=== PATIENT | male | born 1990 | race Caucasian/White ===

== ENCOUNTER 2019-06-26 12:16 | Observation (INO) | payer MEDICARE ==
[2019-06-26] MEDS ORDERED: Ondansetron 4 MG/2 ML SDV IVPUSH ONE (12:42)
[2019-06-26] MEDS ORDERED: Sodium Chloride 0.9% 1,000 ML IV ONE (12:42)
[2019-06-26] MEDS ORDERED: Pantoprazole 80 MG in Sodium Chloride 0.9% 20 ML IVPUSH ONE (12:42)
--- NOTE | 2019-06-26 12:46 | EDM.PDOC ---
ED HPI GENERAL MEDICAL PROBLEM - General Chief Complaint: Gastrointestinal Problem Stated Complaint: VOMITTING BLOOD Time Seen by Provider: 06/26/19 12:27 Source of Information: Reports: Patient History Limitations: Reports: No Limitations - History of Present Illness INITIAL COMMENTS - FREE TEXT/NARRATIVE: HISTORY AND PHYSICAL: History of present illness: Patient is a 29-year-old male who presents to the ED today with concern of blood in his vomit that occurred approximately 2 hours prior to arrival to the ED. Patient states he had just eaten and started feeling nauseous and vomited. Patient states after the food at all past there was a small amount of blood in his vomit. Patient states he had one more episode of vomiting just before coming to the ED which has also had a small amount of blood. Patient states he does drink alcohol and used to drink about 10 beers a day but over the past month has been having "stomach issues "socially been drinking 2-3 drinks a day. Patient states he does have a history of GERD but she is not taking any medications for. Patient states he has some upper abdominal pain which she feels is associated vomiting. Patient denies any other symptoms or concerns. Patient denies fever, chills, chest pain, shortness of breath, or cough. Denies headache, neck stiff ness, change in vision, syncope, or near syncope. Denies diarrhea, constipation, or dysuria. Has not noted any blood in urine or stool. Patient has been eating and drinking appropriately. Review of systems: As per history of present illness and below otherwise all systems reviewed and negative. Past medical history: As per history of present illness and as reviewed below otherwise noncontributory. Surgical history: As per history of present illness and as reviewed below otherwise noncontributory. Social history: See social history for further information Family history: As per history of present illness and as reviewed below otherwise noncontributory. Physical exam: General: Patient is alert, oriented, and in no acute distress. Patient sitting comfortably on exam table. HEENT: Atraumatic, normocephalic, pupils equal and reactive bilaterally, negative for conjunctival pallor or scleral icterus, mucous membranes moist, TMs normal bilaterally, throat clear, neck supple, nontender, trachea midline. No drooling or trismus noted. No meningeal signs. No hot potato voice noted. Lungs: Clear to auscultation, breath sounds equal bilaterally, chest nontender. Heart: S1S2, regular rate and rhythm without overt murmur Abdomen: Soft, nondistended, nontender. Negative for masses or hepatosplenomegaly. Negative for costovertebral tenderness. Pelvis: Stable nontender. Genitourinary: Deferred. Rectal: Hemoccult negative Skin: Intact, warm, dry. No lesions or rashes noted. Extremities: Atraumatic, negative for cords or calf pain. Neurovascular unremarkable. Neuro: Awake, alert, oriented. Cranial nerves II through XII unremarkable. Cerebellum unremarkable. Motor and sensory unremarkable throughout. Exam nonfocal. Notes: Dr. Moon consulted on patient and will admit to observation. Voices understanding and is agreeable to plan of care. Denies any further questions or concerns at this time. Diagnostics: CBC, CMP, UA, EKG, lipase, Hemoccult, abdominal pelvic CT Therapeutics: Saline, Zofran, Protonix Impression: H/O hematemesis Transaminitis Plan: Admit to observation to Dr. Moon Definitive disposition and diagnosis as appropriate pending reevaluation and review of above. - Related Data Allergies Allergy/AdvReac Type Severity Reaction Status Date / Time divalproex sodium Allergy Irritabilit Verified 06/26/19 12:28 [From Depakote] y risperidone [From Risperdal] Allergy Irritabilit Verified 06/26/19 12:28 y Home Meds: Home Meds Lisinopril 40 mg PO ASDIRECTED 06/26/19 [History] OLANZapine [Olanzapine Odt] 10 mg PO ASDIRECTED 06/26/19 [History] Past Medical History Cardiovascular History: Reports: Hypertension Musculoskeletal History: Reports: Fracture Other Musculoskeletal History: Left hip Psychiatric History: Reports: Bipolar - Infectious Disease History Infectious Disease History: Reports: Chicken Pox Social & Family History - Family History Family Medical History: Noncontributory - Caffeine Use Caffeine Use: Reports: Coffee - Recreational Drug Use Recreational Drug Use: No ED ROS GENERAL - Review of Systems Review Of Systems: Comprehensive ROS is negative, except as noted in HPI. ED EXAM, GENERAL - Physical Exam Exam: See Below (see dictation) Course - Vital Signs Last Recorded V/S: Last Vital Signs Temp 97 F 06/26/19 12:29 Pulse 100 06/26/19 14:46 Resp 18 06/26/19 14:46 BP 145/95 H 06/26/19 14:46 Pulse Ox 98 06/26/19 14:46 - Orders/Labs/Meds Orders: Active Orders 24 hr Category Date Time Status Admission Status [Patient Status] [ADT] Stat ADT 06/26/19 15:19 Ordered EKG Documentation Completion [RC] STAT Care 06/26/19 12:46 Active Hemoccult [Fecal Occult Blood Collection] [RC] Care 06/26/19 12:42 Active ASDIRECTED Labs: Laboratory Tests 06/26/19 06/26/19 06/26/19 Range/Units 12:50 13:00 13:00 WBC 10.52 (4.0-11.0) K/uL RBC 5.08 (4.50-5.90) M/uL Hgb 16.2 (13.0-17.0) g/dL Hct 45.3 (38.0-50.0) % MCV 89.2 (80.0-98.0) fL MCH 31.9 (27.0-32.0) pg MCHC 35.8 (31.0-37.0) g/dL RDW Std Deviation 38.7 (28.0-62.0) fl RDW Coeff of Jazlyn 12 (11.0-15.0) % Plt Count 288 (150-400) K/uL MPV 9.80 (7.40-12.00) fL Neut % (Auto) 62.9 (48.0-80.0) % Lymph % (Auto) 24.6 (16.0-40.0) % [place] % (Auto) 7.4 (0.0-15.0) % Eos % (Auto) 3.5 (0.0-7.0) % Baso % (Auto) 1.6 H (0.0-1.5) % Neut # (Auto) 6.6 H (1.4-5.7) K/uL Lymph # (Auto) 2.6 H (0.6-2.4) K/uL [place] # (Auto) 0.8 (0.0-0.8) K/uL Eos # (Auto) 0.4 (0.0-0.7) K/uL Baso # (Auto) 0.2 H (0.0-0.1) K/uL Nucleated RBC % 0.0 /100WBC Nucleated RBCs # 0 K/uL Sodium 136 (136-148) mmol/L Potassium 4.6 (3.5-5.1) mmol/L Chloride 100 (98-107) mmol/L Carbon Dioxide 24.1 (21.0-32.0) mmol/L BUN 9 (7.0-18.0) mg/dL Creatinine 1.1 (0.8-1.3) mg/dL Est Cr Clr Drug Dosing 109.74 mL/min Estimated GFR (MDRD) > 60.0 ml/min Glucose 102 (74-106) mg/dL Calcium 9.6 (8.5-10.1) mg/dL Total Bilirubin 0.4 (0.2-1.0) mg/dL AST 73 H (15-37) IU/L ALT 238 H (14-63) IU/L Alkaline Phosphatase 118 H (46-116) U/L Total Protein 8.3 H (6.4-8.2) g/dL Albumin 4.5 (3.4-5.0) g/dL Globulin 3.8 (2.6-4.0) g/dL Albumin/Globulin Ratio 1.2 (0.9-1.6) Lipase 99 (73-393) U/L Urine Color YELLOW Urine Appearance CLEAR Urine pH 6.0 (5.0-8.0) Ur Specific [place] 1.020 (1.001-1.035) Urine Protein NEGATIVE (NEGATIVE) mg/dL Urine Glucose (UA) NEGATIVE (NEGATIVE) mg/dL Urine Ketones NEGATIVE (NEGATIVE) mg/dL Urine Occult Blood NEGATIVE (NEGATIVE) Urine Nitrite NEGATIVE (NEGATIVE) Urine Bilirubin NEGATIVE (NEGATIVE) Urine Urobilinogen 0.2 (<2.0) EU/dL Ur Leukocyte Esterase NEGATIVE (NEGATIVE) Meds: Medications Discontinued Medications Generic Name Dose Route Start Last Admin Trade Name Freq PRN Reason Stop Dose Admin Sodium Chloride 1,000 mls @ 999 mls/hr 06/26/19 12:42 06/26/19 13:03 Normal Saline IV 06/26/19 13:42 999 mls/hr BOLUS ONE Administration Pantoprazole Sodium 80 mg/ 20 mls @ 420 mls/hr 06/26/19 12:42 06/26/19 13:05 Sodium Chloride IVPUSH 06/26/19 12:44 420 mls/hr ONETIME ONE Administration Iopamidol 100 ml 06/26/19 14:19 06/26/19 14:20 Isovue-370 (76%) IVPUSH 06/26/19 14:20 100 ml ONETIME STA Administration Ondansetron HCl 4 mg 06/26/19 12:42 06/26/19 13:04 Zofran IVPUSH 06/26/19 12:43 4 mg ONETIME ONE Administration Departure - Departure Time of Disposition: 15:20 Disposition: Refer to Observation Clinical Impression: History of hematemesis, Transaminitis - Discharge Information Referrals: PCP,None [Primary Care Provider] - Forms: ED Department Discharge Sepsis Event Note - Evaluation Sepsis Screening Result: No Definite Risk - Focused Exam Vital Signs: Vital Signs Temp Pulse Resp BP Pulse Ox 06/26/19 14:46 100 18 145/95 H 98 06/26/19 12:29 97 F 120 H 20 151/93 H 97 Date Exam was Performed: 06/26/19 Time Exam was Performed: 15:20 - My Orders Last 24 Hours: My Active Orders 06/26/19 12:42 Hemoccult [Fecal Occult Blood Collection] [RC] ASDIRECTED 06/26/19 12:46 EKG Documentation Completion [RC] STAT 06/26/19 15:19 Admission Status [Patient Status] [ADT] Stat - Assessment/Plan Last 24 Hours: My Active Orders 06/26/19 12:42 Hemoccult [Fecal Occult Blood Collection] [RC] ASDIRECTED 06/26/19 12:46 EKG Documentation Completion [RC] STAT 06/26/19 15:19 Admission Status [Patient Status] [ADT] Stat
[2019-06-26 13:38] LABS: BLOOD UREA NITROGEN,BUN 9 mg/dL (7.0-18.0); CARBON DIOXIDE,CO2 24.1 mmol/L (21.0-32.0); CHLORIDE,CL 100 mmol/L (98-107); GLUCOSE RANDOM 102 mg/dL (74-106); LIPASE 99 U/L (73-393); POTASSIUM,K 4.6 mmol/L (3.5-5.1); SODIUM,NA 136 mmol/L (136-148)
[2019-06-26] MEDS ORDERED: Iopamidol 755 Mg/ML 100 ML Bottle IVPUSH STA (14:19)
--- NOTE | 2019-06-26 14:37 | CT ---
Vomiting blood this a.m. Technique: Contrast-enhanced CT and pelvis 100 mL Isovue-370 coronal and sagittal re-formatted images obtained. Findings : Heart is normal. No pericardial effusion. No pleural effusion. 3 mm right middle lobe pulmonary nodule series 201 image 6. Fatty liver. Spleen pancreas adrenal glands are unremarkable. Gallbladder is unremarkable. Normal caliber abdominal aorta. Stomach decompressed and grossly unremarkable. Kidneys are unremarkable.Bowel is unremarkable. No findings for appendicitis. Fat containing inguinal hernias. Urinary bladder is unremarkable prostate gland is unremarkable. No inflammatory change in the abdomen or pelvis. Postsurgical changes left pelvis. No suspicious bony lesions. Impression : 1. No acute findings in the abdomen or pelvis. 2. Fatty liver. 3. 3 millimeter right middle lobe pulmonary nodule follow-up per Fleischner society guidelines. Please note that all CT scans at this facility use dose modulation, iterative reconstruction, and/or weight-based dosing when appropriate to reduce radiation dose to as low as reasonably achievable. Dictated by Alicia Rebolledo MD @ Jun 26 2019 2:25PM Signed by Dr. Alicia Rebolledo @ Jun 26 2019 2:35PM
[2019-06-26] MEDS ORDERED: Lactated Ringers 1,000 ML IV ONE (15:19)
[2019-06-26] MEDS ORDERED: Ondansetron 4 MG/2 ML SDV IVPUSH PRN (15:21)
[2019-06-26] MEDS ORDERED: LORazepam 1 MG Tab PO PRN (15:27)
[2019-06-26] MEDS ORDERED: Lactated Ringers 1,000 ML IV SCH (15:30)
--- NOTE | 2019-06-26 15:37 | PCM.HP.2 ---
<Demian Pisano M - Last Filed: 06/26/19 15:32> H&P History of Present Illness - General Date of Service: 06/26/19 Admit Problem/Dx: Admission Diagnosis/Problem Admission Diagnosis/Problem History of hematemesis Source of Information: Patient History Limitations: Reports: No Limitations - History of Present Illness Initial Comments - Free Text/Narative: 29-year-old male presented to ER after 2 episodes blood in his vomit this morning. He has a PMH of HTN, bipolar disease and GERD. He reports that he vomited after eating his breakfast this morning and estimates it was about 100 cc. He reports he vomiting a second time just prior to coming to the ER which was just a scant amount of blood. He reported feeling a little dizzy after vomiting. Denies history of any blood in his vomit prior to this episode. No history of cirrhosis. He denied any fevers, chills, blurry vision, shortness of breath, sore throat, cough, chest pain, nausea, abdominal pain, diarrhea, blood in stool, blood in urine, numbness or tingling in extremities. He does have a history of alcohol abuse and a few months ago was drinking up to 10 beers per day for about 6 months. Recently, he reports only drinking approximately 2 beers per day. Smokes e-cigarettes and denied illicit drug use. In the ER, patient's HR was 120 and BP was 151/93 mm Hg. Hemoglobin was 16. CMP revealed transaminitis. CT abdomen/pelvis showed fatty liver disease and no acute findings. Hemoccult stool test negative. UA negative. EKG showed sinus tachycardia. He received 1 L IV NS bolus, IV pantoprazole 80 mg and admitted for further evaluation. - Related Data Allergies/Adverse Reactions: Allergies Allergy/AdvReac Type Severity Reaction Status Date / Time divalproex sodium Allergy Irritabilit Verified 06/26/19 16:11 [From Depakote] y risperidone [From Risperdal] Allergy Irritabilit Verified 06/26/19 16:11 y Home Medications: Home Meds Lisinopril 40 mg PO DAILY 06/26/19 [History] OLANZapine [Olanzapine Odt] 10 mg PO DAILY 06/26/19 [History] Past Medical History Cardiovascular History: Reports: Hypertension Musculoskeletal History: Reports: Fracture Other Musculoskeletal History: Left hip Psychiatric History: Reports: Bipolar - Infectious Disease History Infectious Disease History: Reports: Chicken Pox Social & Family History - Family History Family Medical History: Noncontributory - Caffeine Use Caffeine Use: Reports: Coffee - Recreational Drug Use Recreational Drug Use: No H&P Review of Systems - Review of Systems: Review Of Systems: Comprehensive ROS is negative, except as noted in HPI. Exam - Exam Exam: See Below - Vital Signs Vital Signs: Last Vital Signs Temp 97 F 06/26/19 12:29 Pulse 100 06/26/19 14:46 Resp 18 06/26/19 14:46 BP 145/95 H 06/26/19 14:46 Pulse Ox 98 06/26/19 14:46 Weight: 104.326 kg - Exam General: Alert, Oriented, Cooperative, Other (NAD) HEENT: Conjunctiva Clear, EOMI, Hearing Intact, Mucosa Moist & [place], Posterior Pharynx Clear Neck: Supple, Trachea Midline Lungs: Clear to Auscultation, Normal Respiratory Effort Cardiovascular: Regular Rate, Regular Rhythm GI/Abdominal Exam: Normal Bowel Sounds, Soft, Non-Tender, No Distention Extremities: Normal Inspection, No Pedal Edema Peripheral Pulses: 1+: Radial (L), Radial (R) Skin: Warm, Dry, Intact Neurological: Cranial Nerves Intact, Strength Equal Bilateral, Normal Speech, Normal Tone Neuro Extensive - Mental Status: Alert, Oriented x3, Normal Mood/Affect - Patient Data Lab Results Last 24 hrs: Laboratory Results - last 24 hr 06/26/19 06/26/19 06/26/19 Range/Units 12:50 13:00 13:00 WBC 10.52 (4.0-11.0) K/uL RBC 5.08 (4.50-5.90) M/uL Hgb 16.2 (13.0-17.0) g/dL Hct 45.3 (38.0-50.0) % MCV 89.2 (80.0-98.0) fL MCH 31.9 (27.0-32.0) pg MCHC 35.8 (31.0-37.0) g/dL RDW Std Deviation 38.7 (28.0-62.0) fl RDW Coeff of Jazlyn 12 (11.0-15.0) % Plt Count 288 (150-400) K/uL MPV 9.80 (7.40-12.00) fL Neut % (Auto) 62.9 (48.0-80.0) % Lymph % (Auto) 24.6 (16.0-40.0) % Long % (Auto) 7.4 (0.0-15.0) % Eos % (Auto) 3.5 (0.0-7.0) % Baso % (Auto) 1.6 H (0.0-1.5) % Neut # (Auto) 6.6 H (1.4-5.7) K/uL Lymph # (Auto) 2.6 H (0.6-2.4) K/uL Long # (Auto) 0.8 (0.0-0.8) K/uL Eos # (Auto) 0.4 (0.0-0.7) K/uL Baso # (Auto) 0.2 H (0.0-0.1) K/uL Nucleated RBC % 0.0 /100WBC Nucleated RBCs # 0 K/uL Sodium 136 (136-148) mmol/L Potassium 4.6 (3.5-5.1) mmol/L Chloride 100 (98-107) mmol/L Carbon Dioxide 24.1 (21.0-32.0) mmol/L BUN 9 (7.0-18.0) mg/dL Creatinine 1.1 (0.8-1.3) mg/dL Est Cr Clr Drug Dosing 109.74 mL/min Estimated GFR (MDRD) > 60.0 ml/min Glucose 102 (74-106) mg/dL Calcium 9.6 (8.5-10.1) mg/dL Total Bilirubin 0.4 (0.2-1.0) mg/dL AST 73 H (15-37) IU/L ALT 238 H (14-63) IU/L Alkaline Phosphatase 118 H (46-116) U/L Total Protein 8.3 H (6.4-8.2) g/dL Albumin 4.5 (3.4-5.0) g/dL Globulin 3.8 (2.6-4.0) g/dL Albumin/Globulin Ratio 1.2 (0.9-1.6) Lipase 99 (73-393) U/L Urine Color YELLOW Urine Appearance CLEAR Urine pH 6.0 (5.0-8.0) Ur Specific [place] 1.020 (1.001-1.035) Urine Protein NEGATIVE (NEGATIVE) mg/dL Urine Glucose (UA) NEGATIVE (NEGATIVE) mg/dL Urine Ketones NEGATIVE (NEGATIVE) mg/dL Urine Occult Blood NEGATIVE (NEGATIVE) Urine Nitrite NEGATIVE (NEGATIVE) Urine Bilirubin NEGATIVE (NEGATIVE) Urine Urobilinogen 0.2 (<2.0) EU/dL Ur Leukocyte Esterase NEGATIVE (NEGATIVE) Result Diagrams: 06/26/19 13:00 06/26/19 13:00 Sepsis Event Note - Evaluation Sepsis Screening Result: No Definite Risk - Focused Exam Vital Signs: Vital Signs Temp Pulse Resp BP Pulse Ox 06/26/19 14:46 100 18 145/95 H 98 06/26/19 12:29 97 F 120 H 20 151/93 H 97 Date Exam was Performed: 06/26/19 Time Exam was Performed: 15:32 Problem List Initiated/Reviewed/Updated: Yes Orders Last 24hrs: Active Orders 24 hr Category Date Time Status Admission Status [Patient Status] [ADT] Stat ADT 06/26/19 15:19 Active Antiembolic Devices [RC] PER UNIT ROUTINE Care 06/26/19 15:22 Ordered CIWAA Assessment [RC] Q4H Care 06/26/19 15:26 Ordered EKG Documentation Completion [RC] STAT Care 06/26/19 12:46 Active Hemoccult [Fecal Occult Blood Collection] [RC] Care 06/26/19 12:42 Active ASDIRECTED Notify Provider Consults [RC] ASDIRECTED Care 06/26/19 15:31 Ordered Oxygen Therapy [RC] PRN Care 06/26/19 15:21 Ordered Up ad Beckie [RC] ASDIRECTED Care 06/26/19 15:21 Ordered VTE/DVT Education [RC] PER UNIT ROUTINE Care 06/26/19 15:21 Ordered Vital Signs [RC] Q4H Care 06/26/19 15:21 Ordered Consult to Physician [CONS] Stat Cons 06/26/19 15:31 Ordered Nothing per Oral Now Diet [DIET] Diet 06/26/19 Lunch Ordered CBC WITH AUTO DIFF [HEME] AM Lab 06/27/19 05:11 Ordered COMPREHENSIVE METABOLIC PN,CMP [CHEM] AM Lab 06/27/19 05:11 Ordered HEMOGLOBIN [HEME] Timed Lab 06/26/19 19:00 Ordered LORazepam [Ativan] Med 06/26/19 15:27 Ordered See Protocol PO Q4H PRN Lactated Ringers [Ringers, Lactated] 1,000 ml Med 06/26/19 15:19 Active IV .BOLUS Lactated Ringers [Ringers, Lactated] 1,000 ml Med 06/26/19 15:30 Active IV ASDIRECTED Ondansetron [Zofran] Med 06/26/19 15:21 Ordered 4 mg IVPUSH Q4H PRN Pantoprazole [ProTONIX IV] 40 mg Med 06/27/19 09:00 Ordered Sodium Chloride 0.9% [Normal Saline] 10 ml IV BID Sucralfate [Carafate] Med 06/26/19 15:30 Ordered 1 gm PO Q6H Sequential Compression Device [OM.PC] Per Unit Routine Oth 06/26/19 15:21 Ordered Resuscitation Status Routine Resus Stat 06/26/19 15:21 Ordered Medication Orders Lactated Ringer's (Ringers, Lactated) 1,000 mls @ 999 mls/hr IV .BOLUS ONE Stop: 06/26/19 16:19 Lactated Ringer's (Ringers, Lactated) 1,000 mls @ 125 mls/hr IV ASDIRECTED ALBERTO Pantoprazole Sodium 40 mg/ (Sodium Chloride) 10 mls @ 300 mls/hr IV BID ALBERTO Lorazepam (Ativan) 0 mg PO Q4H PRN; Protocol PRN Reason: ciwa assessment Ondansetron HCl (Zofran) 4 mg IVPUSH Q4H PRN PRN Reason: Nausea Sucralfate (Carafate) 1 gm PO Q6H ALBERTO Assessment/Plan Comment:: Assessment and Plan: 1. Hematemesis: Will trend hemoglobin. NPO for now. Will give additional IV LR 1L bolus and then maintenance thereafter. Will start IV pantoprazole 40 BID and carafate PO. CT abdomen showed fatty liver disease and no acute findings. Vital signs stable. Will consult general surgery. 2. Transaminitis likely secondary to fatty liver disease. 3. Alcohol abuse: Will do CIWA assessment. Ativan on board prn CIWA protocol. 4. Past medical history of HTN and Bipolar disease: Continue home medications. 5. VTE prophylaxis: SCD's. <Geraldine Moon - Last Filed: 06/26/19 20:26> H&P History of Present Illness - General Admit Problem/Dx: Admission Diagnosis/Problem Admission Diagnosis/Problem History of hematemesis Exam - Vital Signs Vital Signs: Last Vital Signs Temp 36.2 C 06/26/19 16:17 Pulse 101 H 06/26/19 16:17 Resp 18 06/26/19 16:17 BP 146/88 H 06/26/19 16:28 Pulse Ox 97 06/26/19 16:17 - Patient Data Lab Results Last 24 hrs: Laboratory Results - last 24 hr 06/26/19 06/26/19 06/26/19 Range/Units 12:50 13:00 13:00 WBC 10.52 (4.0-11.0) K/uL RBC 5.08 (4.50-5.90) M/uL Hgb 16.2 (13.0-17.0) g/dL Hct 45.3 (38.0-50.0) % MCV 89.2 (80.0-98.0) fL MCH 31.9 (27.0-32.0) pg MCHC 35.8 (31.0-37.0) g/dL RDW Std Deviation 38.7 (28.0-62.0) fl RDW Coeff of Jazlyn 12 (11.0-15.0) % Plt Count 288 (150-400) K/uL MPV 9.80 (7.40-12.00) fL Neut % (Auto) 62.9 (48.0-80.0) % Lymph % (Auto) 24.6 (16.0-40.0) % Long % (Auto) 7.4 (0.0-15.0) % Eos % (Auto) 3.5 (0.0-7.0) % Baso % (Auto) 1.6 H (0.0-1.5) % Neut # (Auto) 6.6 H (1.4-5.7) K/uL Lymph # (Auto) 2.6 H (0.6-2.4) K/uL Long # (Auto) 0.8 (0.0-0.8) K/uL Eos # (Auto) 0.4 (0.0-0.7) K/uL Baso # (Auto) 0.2 H (0.0-0.1) K/uL Nucleated RBC % 0.0 /100WBC Nucleated RBCs # 0 K/uL Sodium 136 (136-148) mmol/L Potassium 4.6 (3.5-5.1) mmol/L Chloride 100 (98-107) mmol/L Carbon Dioxide 24.1 (21.0-32.0) mmol/L BUN 9 (7.0-18.0) mg/dL Creatinine 1.1 (0.8-1.3) mg/dL Est Cr Clr Drug Dosing 109.74 mL/min Estimated GFR (MDRD) > 60.0 ml/min Glucose 102 (74-106) mg/dL Calcium 9.6 (8.5-10.1) mg/dL Total Bilirubin 0.4 (0.2-1.0) mg/dL AST 73 H (15-37) IU/L ALT 238 H (14-63) IU/L Alkaline Phosphatase 118 H (46-116) U/L Total Protein 8.3 H (6.4-8.2) g/dL Albumin 4.5 (3.4-5.0) g/dL Globulin 3.8 (2.6-4.0) g/dL Albumin/Globulin Ratio 1.2 (0.9-1.6) Lipase 99 (73-393) U/L Urine Color YELLOW Urine Appearance CLEAR Urine pH 6.0 (5.0-8.0) Ur Specific [place] 1.020 (1.001-1.035) Urine Protein NEGATIVE (NEGATIVE) mg/dL Urine Glucose (UA) NEGATIVE (NEGATIVE) mg/dL Urine Ketones NEGATIVE (NEGATIVE) mg/dL Urine Occult Blood NEGATIVE (NEGATIVE) Urine Nitrite NEGATIVE (NEGATIVE) Urine Bilirubin NEGATIVE (NEGATIVE) Urine Urobilinogen 0.2 (<2.0) EU/dL Ur Leukocyte Esterase NEGATIVE (NEGATIVE) 06/26/19 Range/Units 19:00 WBC (4.0-11.0) K/uL RBC (4.50-5.90) M/uL Hgb 14.1 (13.0-17.0) g/dL Hct (38.0-50.0) % MCV (80.0-98.0) fL MCH (27.0-32.0) pg MCHC (31.0-37.0) g/dL RDW Std Deviation (28.0-62.0) fl RDW Coeff of Jazlyn (11.0-15.0) % Plt Count (150-400) K/uL MPV (7.40-12.00) fL Neut % (Auto) (48.0-80.0) % Lymph % (Auto) (16.0-40.0) % Long % (Auto) (0.0-15.0) % Eos % (Auto) (0.0-7.0) % Baso % (Auto) (0.0-1.5) % Neut # (Auto) (1.4-5.7) K/uL Lymph # (Auto) (0.6-2.4) K/uL Long # (Auto) (0.0-0.8) K/uL Eos # (Auto) (0.0-0.7) K/uL Baso # (Auto) (0.0-0.1) K/uL Nucleated RBC % /100WBC Nucleated RBCs # K/uL Sodium (136-148) mmol/L Potassium (3.5-5.1) mmol/L Chloride (98-107) mmol/L Carbon Dioxide (21.0-32.0) mmol/L BUN (7.0-18.0) mg/dL Creatinine (0.8-1.3) mg/dL Est Cr Clr Drug Dosing mL/min Estimated GFR (MDRD) ml/min Glucose (74-106) mg/dL Calcium (8.5-10.1) mg/dL Total Bilirubin (0.2-1.0) mg/dL AST (15-37) IU/L ALT (14-63) IU/L Alkaline Phosphatase (46-116) U/L Total Protein (6.4-8.2) g/dL Albumin (3.4-5.0) g/dL Globulin (2.6-4.0) g/dL Albumin/Globulin Ratio (0.9-1.6) Lipase (73-393) U/L Urine Color Urine Appearance Urine pH (5.0-8.0) Ur Specific [place] (1.001-1.035) Urine Protein (NEGATIVE) mg/dL Urine Glucose (UA) (NEGATIVE) mg/dL Urine Ketones (NEGATIVE) mg/dL Urine Occult Blood (NEGATIVE) Urine Nitrite (NEGATIVE) Urine Bilirubin (NEGATIVE) Urine Urobilinogen (<2.0) EU/dL Ur Leukocyte Esterase (NEGATIVE) Result Diagrams: 06/26/19 19:00 06/26/19 13:00 Sepsis Event Note - Focused Exam Vital Signs: Vital Signs Temp Pulse Resp BP BP Pulse Ox 06/26/19 16:28 146/88 H 06/26/19 16:17 36.2 C 101 H 18 146/88 H 97 06/26/19 15:55 102 H 18 144/90 H 98 06/26/19 14:46 100 18 145/95 H 98 06/26/19 12:29 36.1 C 120 H 20 151/93 H 97 Date Exam was Performed: 06/26/19 Time Exam was Performed: 20:26 Orders Last 24hrs: Active Orders 24 hr Category Date Time Status Admission Status [Patient Status] [ADT] Stat ADT 06/26/19 15:19 Active Antiembolic Devices [RC] PER UNIT ROUTINE Care 06/26/19 15:22 Active CIWAA Assessment [RC] Q4H Care 06/26/19 15:26 Active Hemoccult [Fecal Occult Blood Collection] [RC] Care 06/26/19 12:42 Active ASDIRECTED Notify Provider Consults [RC] ASDIRECTED Care 06/26/19 15:31 Active Oxygen Therapy [RC] PRN Care 06/26/19 15:21 Active Up ad Beckie [RC] ASDIRECTED Care 06/26/19 15:21 Active VTE/DVT Education [RC] PER UNIT ROUTINE Care 06/26/19 15:21 Active Vital Signs [RC] Q4H Care 06/26/19 15:21 Active Consult to Physician [CONS] Stat Cons 06/26/19 15:31 Active Full Liquid Diet [DIET] Diet 06/26/19 Dinner Active CBC WITH AUTO DIFF [HEME] AM Lab 06/27/19 05:11 Ordered COMPREHENSIVE METABOLIC PN,CMP [CHEM] AM Lab 06/27/19 05:11 Ordered LORazepam [Ativan] Med 06/26/19 15:27 Active See Protocol PO Q4H PRN Lisinopril [Prinivil] Med 06/26/19 16:15 Active 40 mg PO DAILY OLANZapine [ZyPREXA Zydis] Med 06/26/19 16:15 Active 10 mg PO DAILY Ondansetron [Zofran] Med 06/26/19 15:21 Active 4 mg IVPUSH Q4H PRN Pantoprazole [ProTONIX IV] 40 mg Med 06/27/19 09:00 Active Sodium Chloride 0.9% [Normal Saline] 10 ml IV BID Sucralfate [Carafate] Med 06/26/19 15:30 Active 1 gm PO Q6H Sequential Compression Device [OM.PC] Per Unit Routine Oth 06/26/19 15:21 Ordered Resuscitation Status Routine Resus Stat 06/26/19 15:21 Ordered Medication Orders Pantoprazole Sodium 40 mg/ (Sodium Chloride) 10 mls @ 300 mls/hr IV BID ALBERTO Lisinopril (Prinivil) 40 mg PO DAILY [facility] Last Admin: 06/26/19 16:28 Dose: 40 mg Lorazepam (Ativan) 0 mg PO Q4H PRN; Protocol PRN Reason: ciwa assessment Olanzapine (Zyprexa Zydis) 10 mg PO DAILY [facility] Last Admin: 06/26/19 17:31 Dose: Not Given Ondansetron HCl (Zofran) 4 mg IVPUSH Q4H PRN PRN Reason: Nausea Sucralfate (Carafate) 1 gm PO Q6H ALBERTO Last Admin: 06/26/19 16:15 Dose: 1 gm Assessment/Plan Comment:: I performed a history and physical exam of the patient and discussed management with resident. I have reviewed the residents note and agree with documented findings and plan unless otherwise specified in my note.
[2019-06-26] MEDS: Sucralfate Suspension 1 GM/10 ML Cup PO SCH ×2 (16:15→20:43)
[2019-06-26] MEDS: Lisinopril 10 MG Tab PO SCH (16:28)
--- NOTE | 2019-06-26 16:43 | PCM.CONS ---
H&P History of Present Illness - General Date of Service: 06/26/19 Admit Problem/Dx: Admission Diagnosis/Problem Admission Diagnosis/Problem History of hematemesis Source of Information: Patient History Limitations: Reports: No Limitations - History of Present Illness Initial Comments - Free Text/Narative: 29 y/o gentleman admitted via ER with 2 episodes of hematemesis today. He admits to drinking 6 gin and tonics [place] He does have a history of significant alcohol intake. About a month ago he states he was consuming up to 10 beers daily. Onset of Symptoms: Reports: Today Duration of Symptoms: Reports: Hour(s):, Resolved Prior to Arrival Location: Reports: Abdomen Quality: Denies: Ache, Burning, Pressure Severity: Mild Improves with: Reports: None Worsens with: Reports: None Associated Symptoms: Reports: Nausea/Vomiting - Related Data Allergies/Adverse Reactions: Allergies Allergy/AdvReac Type Severity Reaction Status Date / Time divalproex sodium Allergy Irritabilit Verified 06/26/19 16:11 [From Depakote] y risperidone [From Risperdal] Allergy Irritabilit Verified 06/26/19 16:11 y Home Medications: Home Meds Lisinopril 40 mg PO DAILY 06/26/19 [History] OLANZapine [Olanzapine Odt] 10 mg PO DAILY 06/26/19 [History] Past Medical History Cardiovascular History: Reports: Hypertension Musculoskeletal History: Reports: Fracture Other Musculoskeletal History: Left hip. Acetabular fracture. Psychiatric History: Reports: Bipolar - Infectious Disease History Infectious Disease History: Reports: Chicken Pox Social & Family History - Family History Family Medical History: Noncontributory - Caffeine Use Caffeine Use: Reports: Coffee - Recreational Drug Use Recreational Drug Use: No H&P Review of Systems - Review of Systems: Review Of Systems: See Below General: Denies: Fever, Chills, Malaise, Weakness, Fatigue HEENT: Reports: No Symptoms Pulmonary: Denies: Shortness of Breath, Wheezing Cardiovascular: Denies: Chest Pain, Palpitations Gastrointestinal: Reports: Abdominal Pain, Flatus, Hematemesis, Nausea, Vomiting. Denies: Distension, Hematochezia, Melena Genitourinary: Denies: Dysuria, Frequency, Burning, Pain Musculoskeletal: Reports: No Symptoms Skin: Denies: Cyanosis, Jaundice, Mottled Psychiatric: Reports: Other (bipolar disorder). Denies: Confusion Neurological: Denies: Confusion, Dizziness, Headache Exam - Exam Exam: See Below - Vital Signs Vital Signs: Last Vital Signs Temp 97.2 F 06/26/19 16:17 Pulse 101 H 06/26/19 16:17 Resp 18 06/26/19 16:17 BP 146/88 H 06/26/19 16:28 Pulse Ox 97 06/26/19 16:17 Weight: 230 lb - Exam Quality Assessment: No: Supplemental Oxygen, Central Line/PICC, Urinary Catheter General: Alert, Oriented, Cooperative HEENT: Conjunctiva Clear, EACs Clear, Pupils Equal, Pupils Reactive. No: Scleral Icterus Neck: Supple, Trachea Midline Lungs: Clear to Auscultation, Normal Respiratory Effort Cardiovascular: Regular Rate, Regular Rhythm, Normal S1, Normal S2. No: Tachycardia, Systolic Murmur, Diastolic Murmur GI/Abdominal Exam: Normal Bowel Sounds, Soft, Non-Tender, No Distention, No Mass , Pelvis Stable (Male) Exam: No Hernia Rectal (Males) Exam: Deferred Back Exam: Normal Inspection, Full Range of Motion Extremities: Normal Inspection, Normal Range of Motion Peripheral Pulses: 4+: Posterior Tibial (L), Posterior Tibial (R), Dorsalis Pedis (L), Dorsalis Pedis (R) Skin: Warm, Dry, Intact Neurological: Cranial Nerves Intact Neuro Extensive - Mental Status: Alert, Oriented x3, Normal Mood/Affect, Normal Cognition Psychiatric: Alert, Normal Affect, Normal Mood - Patient Data Lab Results Last 24 hrs: Laboratory Results - last 24 hr 06/26/19 06/26/19 06/26/19 Range/Units 12:50 13:00 13:00 WBC 10.52 (4.0-11.0) K/uL RBC 5.08 (4.50-5.90) M/uL Hgb 16.2 (13.0-17.0) g/dL Hct 45.3 (38.0-50.0) % MCV 89.2 (80.0-98.0) fL MCH 31.9 (27.0-32.0) pg MCHC 35.8 (31.0-37.0) g/dL RDW Std Deviation 38.7 (28.0-62.0) fl RDW Coeff of Jazlyn 12 (11.0-15.0) % Plt Count 288 (150-400) K/uL MPV 9.80 (7.40-12.00) fL Neut % (Auto) 62.9 (48.0-80.0) % Lymph % (Auto) 24.6 (16.0-40.0) % [place] % (Auto) 7.4 (0.0-15.0) % Eos % (Auto) 3.5 (0.0-7.0) % Baso % (Auto) 1.6 H (0.0-1.5) % Neut # (Auto) 6.6 H (1.4-5.7) K/uL Lymph # (Auto) 2.6 H (0.6-2.4) K/uL [place] # (Auto) 0.8 (0.0-0.8) K/uL Eos # (Auto) 0.4 (0.0-0.7) K/uL Baso # (Auto) 0.2 H (0.0-0.1) K/uL Nucleated RBC % 0.0 /100WBC Nucleated RBCs # 0 K/uL Sodium 136 (136-148) mmol/L Potassium 4.6 (3.5-5.1) mmol/L Chloride 100 (98-107) mmol/L Carbon Dioxide 24.1 (21.0-32.0) mmol/L BUN 9 (7.0-18.0) mg/dL Creatinine 1.1 (0.8-1.3) mg/dL Est Cr Clr Drug Dosing 109.74 mL/min Estimated GFR (MDRD) > 60.0 ml/min Glucose 102 (74-106) mg/dL Calcium 9.6 (8.5-10.1) mg/dL Total Bilirubin 0.4 (0.2-1.0) mg/dL AST 73 H (15-37) IU/L ALT 238 H (14-63) IU/L Alkaline Phosphatase 118 H (46-116) U/L Total Protein 8.3 H (6.4-8.2) g/dL Albumin 4.5 (3.4-5.0) g/dL Globulin 3.8 (2.6-4.0) g/dL Albumin/Globulin Ratio 1.2 (0.9-1.6) Lipase 99 (73-393) U/L Urine Color YELLOW Urine Appearance CLEAR Urine pH 6.0 (5.0-8.0) Ur Specific [place] 1.020 (1.001-1.035) Urine Protein NEGATIVE (NEGATIVE) mg/dL Urine Glucose (UA) NEGATIVE (NEGATIVE) mg/dL Urine Ketones NEGATIVE (NEGATIVE) mg/dL Urine Occult Blood NEGATIVE (NEGATIVE) Urine Nitrite NEGATIVE (NEGATIVE) Urine Bilirubin NEGATIVE (NEGATIVE) Urine Urobilinogen 0.2 (<2.0) EU/dL Ur Leukocyte Esterase NEGATIVE (NEGATIVE) Result Diagrams: 06/26/19 13:00 06/26/19 13:00 Sepsis Event Note - Evaluation Sepsis Screening Result: No Definite Risk - Focused Exam Vital Signs: Vital Signs Temp Pulse Resp BP BP Pulse Ox 06/26/19 16:28 146/88 H 06/26/19 16:17 97.2 F 101 H 18 146/88 H 97 06/26/19 15:55 102 H 18 144/90 H 98 06/26/19 14:46 100 18 145/95 H 98 06/26/19 12:29 97 F 120 H 20 151/93 H 97 Date Exam was Performed: 06/26/19 Time Exam was Performed: 16:38 Consult PN Assessment/Plan (1) Alcohol abuse SNOMED Code(s): 83491848 Code(s): F10.10 - ALCOHOL ABUSE, UNCOMPLICATED Priority: Medium Current Visit: Yes (2) History of hematemesis SNOMED Code(s): 062948001 Code(s): Z87.19 - PERSONAL HISTORY OF OTHER DISEASES OF THE DIGESTIVE SYSTEM Priority: Medium Current Visit: Yes (3) Transaminitis SNOMED Code(s): 273201709, 015394936 Code(s): R74.0 - NONSPEC ELEV OF LEVELS OF TRANSAMNS & LACTIC ACID DEHYDRGNSE Priority: Medium Current Visit: Yes (4) GERD (gastroesophageal reflux disease) SNOMED Code(s): 479494528 Code(s): K21.9 - GASTRO-ESOPHAGEAL REFLUX DISEASE WITHOUT ESOPHAGITIS Current Visit: Yes Qualifiers: Esophagitis presence: esophagitis presence not specified Qualified Code(s) : K21.9 - Gastro-esophageal reflux disease without esophagitis Problem List Initiated/Reviewed/Updated: Yes Plan: From my standpoint, the patient may have a full liquid to soft diet. He appears hemodynamically stable. Consider esophagogastroduodenoscopy on June 28. Will reevaluate tomorrow.
[2019-06-26] MEDS ORDERED: OLANZapine 5 MG Tab ONE (17:26)
[2019-06-26] MEDS: OLANZapine 5 MG Tab.DIS PO SCH (17:31)
[2019-06-27] MEDS: Sucralfate Suspension 1 GM/10 ML Cup PO SCH ×4 (04:29→20:49)
[2019-06-27 06:43] LABS: BLOOD UREA NITROGEN,BUN 8 mg/dL (7.0-18.0); CHLORIDE,CL 105 mmol/L (98-107); GLUCOSE RANDOM 92 mg/dL (74-106); POTASSIUM,K 4.3 mmol/L (3.5-5.1); SODIUM,NA 139 mmol/L (136-148)
--- NOTE | 2019-06-27 08:11 | PCM.CONSN ---
- General Info Date of Service: 06/27/19 Admission Dx/Problem (Free Text): Admission Diagnosis/Problem Admission Diagnosis/Problem History of hematemesis Subjective Update: Patient feels better this morning. He denies any further episodes of hematemesis. He denies any abdominal pain. Patient has not had a bowel movement yet. Functional Status: Reports: Tolerating Diet, Ambulating, Urinating - Review of Systems General: Denies: Fever, Weakness, Fatigue HEENT: Reports: No Symptoms Pulmonary: Denies: Shortness of Breath, Cough Cardiovascular: Denies: Chest Pain Gastrointestinal: Reports: Other (No hematemesis). Denies: Abdominal Pain, Decreased Appetite, Diarrhea, Difficulty Swallowing, Hematochezia, Melena, Nausea, Vomiting Genitourinary: Denies: Dysuria, Frequency, Burning, Pain, Urgency Musculoskeletal: Reports: No Symptoms Skin: Denies: Jaundice Neurological: Reports: No Symptoms Psychiatric: Reports: No Symptoms - Patient Data Vitals - Most Recent: Last Vital Signs Temp 98.1 F 06/27/19 04:33 Pulse 97 06/27/19 04:33 Resp 16 06/27/19 04:33 BP 107/63 06/27/19 04:33 Pulse Ox 94 L 06/27/19 04:33 Weight - Most Recent: 230 lb I&O - Last 24 Hours: Intake & Output 06/26/19 06/27/19 06/27/19 19:59 03:59 11:59 Intake Total 640 Output Total 1675 Balance -1035 Lab Results Last 24 Hours: Laboratory Results - last 24 hr 06/26/19 06/26/19 06/26/19 Range/Units 12:50 13:00 13:00 WBC 10.52 (4.0-11.0) K/uL RBC 5.08 (4.50-5.90) M/uL Hgb 16.2 (13.0-17.0) g/dL Hct 45.3 (38.0-50.0) % MCV 89.2 (80.0-98.0) fL MCH 31.9 (27.0-32.0) pg MCHC 35.8 (31.0-37.0) g/dL RDW Std Deviation 38.7 (28.0-62.0) fl RDW Coeff of Jazlyn 12 (11.0-15.0) % Plt Count 288 (150-400) K/uL MPV 9.80 (7.40-12.00) fL Neut % (Auto) 62.9 (48.0-80.0) % Lymph % (Auto) 24.6 (16.0-40.0) % [place] % (Auto) 7.4 (0.0-15.0) % Eos % (Auto) 3.5 (0.0-7.0) % Baso % (Auto) 1.6 H (0.0-1.5) % Neut # (Auto) 6.6 H (1.4-5.7) K/uL Lymph # (Auto) 2.6 H (0.6-2.4) K/uL [place] # (Auto) 0.8 (0.0-0.8) K/uL Eos # (Auto) 0.4 (0.0-0.7) K/uL Baso # (Auto) 0.2 H (0.0-0.1) K/uL Nucleated RBC % 0.0 /100WBC Nucleated RBCs # 0 K/uL Sodium 136 (136-148) mmol/L Potassium 4.6 (3.5-5.1) mmol/L Chloride 100 (98-107) mmol/L Carbon Dioxide 24.1 (21.0-32.0) mmol/L BUN 9 (7.0-18.0) mg/dL Creatinine 1.1 (0.8-1.3) mg/dL Est Cr Clr Drug Dosing 109.74 mL/min Estimated GFR (MDRD) > 60.0 ml/min Glucose 102 (74-106) mg/dL Calcium 9.6 (8.5-10.1) mg/dL Total Bilirubin 0.4 (0.2-1.0) mg/dL AST 73 H (15-37) IU/L ALT 238 H (14-63) IU/L Alkaline Phosphatase 118 H (46-116) U/L Total Protein 8.3 H (6.4-8.2) g/dL Albumin 4.5 (3.4-5.0) g/dL Globulin 3.8 (2.6-4.0) g/dL Albumin/Globulin Ratio 1.2 (0.9-1.6) Lipase 99 (73-393) U/L Urine Color YELLOW Urine Appearance CLEAR Urine pH 6.0 (5.0-8.0) Ur Specific [place] 1.020 (1.001-1.035) Urine Protein NEGATIVE (NEGATIVE) mg/dL Urine Glucose (UA) NEGATIVE (NEGATIVE) mg/dL Urine Ketones NEGATIVE (NEGATIVE) mg/dL Urine Occult Blood NEGATIVE (NEGATIVE) Urine Nitrite NEGATIVE (NEGATIVE) Urine Bilirubin NEGATIVE (NEGATIVE) Urine Urobilinogen 0.2 (<2.0) EU/dL Ur Leukocyte Esterase NEGATIVE (NEGATIVE) 06/26/19 06/27/19 06/27/19 Range/Units 19:00 05:45 05:45 WBC 7.56 (4.0-11.0) K/uL RBC 4.37 L (4.50-5.90) M/uL Hgb 14.1 13.6 (13.0-17.0) g/dL Hct 39.4 (38.0-50.0) % MCV 90.2 (80.0-98.0) fL MCH 31.1 (27.0-32.0) pg MCHC 34.5 (31.0-37.0) g/dL RDW Std Deviation 40.2 (28.0-62.0) fl RDW Coeff of Jazlyn 12 (11.0-15.0) % Plt Count 226 (150-400) K/uL MPV 9.90 (7.40-12.00) fL Neut % (Auto) 42.5 L (48.0-80.0) % Lymph % (Auto) 39.8 (16.0-40.0) % [place] % (Auto) 8.1 (0.0-15.0) % Eos % (Auto) 8.3 H (0.0-7.0) % Baso % (Auto) 1.3 (0.0-1.5) % Neut # (Auto) 3.2 (1.4-5.7) K/uL Lymph # (Auto) 3.0 H (0.6-2.4) K/uL [place] # (Auto) 0.6 (0.0-0.8) K/uL Eos # (Auto) 0.6 (0.0-0.7) K/uL Baso # (Auto) 0.1 (0.0-0.1) K/uL Nucleated RBC % 0.0 /100WBC Nucleated RBCs # 0 K/uL Sodium 139 (136-148) mmol/L Potassium 4.3 (3.5-5.1) mmol/L Chloride 105 (98-107) mmol/L Carbon Dioxide 26.0 (21.0-32.0) mmol/L BUN 8 (7.0-18.0) mg/dL Creatinine 0.8 (0.8-1.3) mg/dL Est Cr Clr Drug Dosing 150.89 mL/min Estimated GFR (MDRD) > 60.0 ml/min Glucose 92 (74-106) mg/dL Calcium 8.5 (8.5-10.1) mg/dL Total Bilirubin 0.5 (0.2-1.0) mg/dL AST 49 H (15-37) IU/L ALT 170 H (14-63) IU/L Alkaline Phosphatase 90 (46-116) U/L Total Protein 5.9 L (6.4-8.2) g/dL Albumin 3.2 L (3.4-5.0) g/dL Globulin 2.7 (2.6-4.0) g/dL Albumin/Globulin Ratio 1.2 (0.9-1.6) Lipase (73-393) U/L Urine Color Urine Appearance Urine pH (5.0-8.0) Ur Specific [place] (1.001-1.035) Urine Protein (NEGATIVE) mg/dL Urine Glucose (UA) (NEGATIVE) mg/dL Urine Ketones (NEGATIVE) mg/dL Urine Occult Blood (NEGATIVE) Urine Nitrite (NEGATIVE) Urine Bilirubin (NEGATIVE) Urine Urobilinogen (<2.0) EU/dL Ur Leukocyte Esterase (NEGATIVE) Med Orders - Current: Current Medications Pantoprazole Sodium 40 mg/ (Sodium Chloride) 10 mls @ 300 mls/hr IV BID [facility] Lisinopril (Prinivil) 40 mg PO DAILY [facility] Last Admin: 06/26/19 16:28 Dose: 40 mg Lorazepam (Ativan) 0 mg PO Q4H PRN; Protocol PRN Reason: ciwa assessment Olanzapine (Zyprexa Zydis) 10 mg PO DAILY [facility] Last Admin: 06/26/19 17:31 Dose: Not Given Ondansetron HCl (Zofran) 4 mg IVPUSH Q4H PRN PRN Reason: Nausea Sucralfate (Carafate) 1 gm PO Q6H [facility] Last Admin: 06/27/19 04:29 Dose: 1 gm Discontinued Medications Sodium Chloride (Normal Saline) 1,000 mls @ 999 mls/hr IV BOLUS ONE Stop: 06/26/19 13:42 Last Admin: 06/26/19 13:03 Dose: 999 mls/hr Pantoprazole Sodium 80 mg/ (Sodium Chloride) 20 mls @ 420 mls/hr IVPUSH ONETIME ONE Stop: 06/26/19 12:44 Last Admin: 06/26/19 13:05 Dose: 420 mls/hr Lactated Ringer's (Ringers, Lactated) 1,000 mls @ 999 mls/hr IV .BOLUS ONE Stop: 06/26/19 16:19 Last Admin: 06/26/19 15:49 Dose: 999 mls/hr Lactated Ringer's (Ringers, Lactated) 1,000 mls @ 125 mls/hr IV ASDIRECTED [facility] Last Admin: 06/26/19 17:32 Dose: 125 mls/hr Iopamidol (Isovue-370 (76%)) 100 ml IVPUSH ONETIME STA Stop: 06/26/19 14:20 Last Admin: 06/26/19 14:20 Dose: 100 ml Olanzapine (Zyprexa) Confirm Administered Dose 10 mg .ROUTE .STK-MED ONE Stop: 06/26/19 17:27 Last Admin: 06/26/19 17:30 Dose: 10 mg Ondansetron HCl (Zofran) 4 mg IVPUSH ONETIME ONE Stop: 06/26/19 12:43 Last Admin: 06/26/19 13:04 Dose: 4 mg - Exam General: Alert, Oriented, Cooperative, No Acute Distress HEENT: Pupils Equal, Pupils Reactive. No: Scleral Icterus Neck: Supple, Trachea Midline Lungs: Clear to Auscultation, Normal Respiratory Effort Cardiovascular: Regular Rate, Regular Rhythm. No: Tachycardia GI/Abdominal Exam: Normal Bowel Sounds, Soft, Non-Tender, No Distention, No Mass (Male) Exam: No Hernia Back Exam: Normal Inspection, Full Range of Motion Extremities: Normal Inspection, Normal Range of Motion, Non-Tender, No Pedal Edema, Normal Capillary Refill Skin: Warm, Dry, Intact Neurological: No New Focal Deficit Psy/Mental Status: Alert, Normal Affect, Normal Mood. No: Anxious, Agitated Sepsis Event Note - Evaluation Sepsis Screening Result: No Definite Risk - Focused Exam Vital Signs: Vital Signs Temp Pulse Resp BP Pulse Ox 06/27/19 04:33 98.1 F 97 16 107/63 94 L 06/26/19 23:30 98.1 F 86 16 112/53 L 94 L Date Exam was Performed: 06/27/19 Time Exam was Performed: 08:09 Consult PN Assessment/Plan (1) Alcohol abuse SNOMED Code(s): 34646858 Code(s): F10.10 - ALCOHOL ABUSE, UNCOMPLICATED Priority: Medium Current Visit: Yes (2) History of hematemesis SNOMED Code(s): 478947059 Code(s): Z87.19 - PERSONAL HISTORY OF OTHER DISEASES OF THE DIGESTIVE SYSTEM Priority: Medium Current Visit: Yes (3) Transaminitis SNOMED Code(s): 691901054, 100463842 Code(s): R74.0 - NONSPEC ELEV OF LEVELS OF TRANSAMNS & LACTIC ACID DEHYDRGNSE Priority: Medium Current Visit: Yes (4) GERD (gastroesophageal reflux disease) SNOMED Code(s): 156522591 Code(s): K21.9 - GASTRO-ESOPHAGEAL REFLUX DISEASE WITHOUT ESOPHAGITIS Current Visit: Yes Qualifiers: Esophagitis presence: esophagitis presence not specified Qualified Code(s) : K21.9 - Gastro-esophageal reflux disease without esophagitis Problem List Initiated/Reviewed/Updated: Yes My Orders Last 24 Hours: My Active Orders 06/27/19 08:08 Oxygen Therapy [RC] PRN Vital Signs [RC] PER UNIT ROUTINE 06/27/19 Dinner Nothing per Oral After Midnight Diet [DIET] Plan: Esophagogastroduodenoscopy with biopsy. The operative procedure, along with the risks, including, but not limited to, bleeding, perforation, and the need for surgery were discussed with the patient who voices understanding, offers no questions and wishes to proceed.
[2019-06-27] MEDS: Lisinopril 10 MG Tab PO SCH (08:35)
[2019-06-27] MEDS: Pantoprazole 40 MG in Sodium Chloride 0.9% 10 ML IV SCH ×2 (08:36→20:49)
[2019-06-27] MEDS: OLANZapine 5 MG Tab.DIS PO SCH (09:34)
[2019-06-27] MEDS: OLANZapine 5 MG Tab PO SCH (09:38)
--- NOTE | 2019-06-27 10:27 | PCM.PN ---
- General Info Date of Service: 06/27/19 Admission Dx/Problem (Free Text): Admission Diagnosis/Problem Admission Diagnosis/Problem History of hematemesis Subjective Update: Patient feels better this morning. He denies any further episodes of hematemesis. He denies any abdominal pain. Patient has not had a bowel movement yet. - Review of Systems General: Denies: Fever, Weakness Pulmonary: Denies: Shortness of Breath, Pleuritic Chest Pain Cardiovascular: Denies: Chest Pain, Palpitations Gastrointestinal: Denies: Abdominal Pain, Constipation, Decreased Appetite, Hematochezia, Melena Genitourinary: Denies: Dysuria, Frequency Musculoskeletal: Denies: Neck Pain, Shoulder Pain Skin: Denies: Cyanosis, Jaundice, Mottled Neurological: Denies: Confusion, Dizziness, Headache - Patient Data Vitals - Most Recent: Last Vital Signs Temp 36.7 C 06/27/19 04:33 Pulse 97 06/27/19 04:33 Resp 16 06/27/19 04:33 BP 118/72 06/27/19 08:35 Pulse Ox 94 L 06/27/19 04:33 Weight - Most Recent: 104.326 kg I&O - Last 24 Hours: Intake & Output 06/26/19 06/27/19 06/27/19 22:59 06:59 14:59 Intake Total 640 Output Total 1675 Balance -1035 Lab Results Last 24 Hours: Laboratory Results - last 24 hr 06/26/19 06/26/19 06/26/19 Range/Units 12:50 13:00 13:00 WBC 10.52 (4.0-11.0) K/uL RBC 5.08 (4.50-5.90) M/uL Hgb 16.2 (13.0-17.0) g/dL Hct 45.3 (38.0-50.0) % MCV 89.2 (80.0-98.0) fL MCH 31.9 (27.0-32.0) pg MCHC 35.8 (31.0-37.0) g/dL RDW Std Deviation 38.7 (28.0-62.0) fl RDW Coeff of Jazlyn 12 (11.0-15.0) % Plt Count 288 (150-400) K/uL MPV 9.80 (7.40-12.00) fL Neut % (Auto) 62.9 (48.0-80.0) % Lymph % (Auto) 24.6 (16.0-40.0) % [place] % (Auto) 7.4 (0.0-15.0) % Eos % (Auto) 3.5 (0.0-7.0) % Baso % (Auto) 1.6 H (0.0-1.5) % Neut # (Auto) 6.6 H (1.4-5.7) K/uL Lymph # (Auto) 2.6 H (0.6-2.4) K/uL [place] # (Auto) 0.8 (0.0-0.8) K/uL Eos # (Auto) 0.4 (0.0-0.7) K/uL Baso # (Auto) 0.2 H (0.0-0.1) K/uL Nucleated RBC % 0.0 /100WBC Nucleated RBCs # 0 K/uL Sodium 136 (136-148) mmol/L Potassium 4.6 (3.5-5.1) mmol/L Chloride 100 (98-107) mmol/L Carbon Dioxide 24.1 (21.0-32.0) mmol/L BUN 9 (7.0-18.0) mg/dL Creatinine 1.1 (0.8-1.3) mg/dL Est Cr Clr Drug Dosing 109.74 mL/min Estimated GFR (MDRD) > 60.0 ml/min Glucose 102 (74-106) mg/dL Calcium 9.6 (8.5-10.1) mg/dL Total Bilirubin 0.4 (0.2-1.0) mg/dL AST 73 H (15-37) IU/L ALT 238 H (14-63) IU/L Alkaline Phosphatase 118 H (46-116) U/L Total Protein 8.3 H (6.4-8.2) g/dL Albumin 4.5 (3.4-5.0) g/dL Globulin 3.8 (2.6-4.0) g/dL Albumin/Globulin Ratio 1.2 (0.9-1.6) Lipase 99 (73-393) U/L Urine Color YELLOW Urine Appearance CLEAR Urine pH 6.0 (5.0-8.0) Ur Specific [place] 1.020 (1.001-1.035) Urine Protein NEGATIVE (NEGATIVE) mg/dL Urine Glucose (UA) NEGATIVE (NEGATIVE) mg/dL Urine Ketones NEGATIVE (NEGATIVE) mg/dL Urine Occult Blood NEGATIVE (NEGATIVE) Urine Nitrite NEGATIVE (NEGATIVE) Urine Bilirubin NEGATIVE (NEGATIVE) Urine Urobilinogen 0.2 (<2.0) EU/dL Ur Leukocyte Esterase NEGATIVE (NEGATIVE) 06/26/19 06/27/19 06/27/19 Range/Units 19:00 05:45 05:45 WBC 7.56 (4.0-11.0) K/uL RBC 4.37 L (4.50-5.90) M/uL Hgb 14.1 13.6 (13.0-17.0) g/dL Hct 39.4 (38.0-50.0) % MCV 90.2 (80.0-98.0) fL MCH 31.1 (27.0-32.0) pg MCHC 34.5 (31.0-37.0) g/dL RDW Std Deviation 40.2 (28.0-62.0) fl RDW Coeff of Jazlyn 12 (11.0-15.0) % Plt Count 226 (150-400) K/uL MPV 9.90 (7.40-12.00) fL Neut % (Auto) 42.5 L (48.0-80.0) % Lymph % (Auto) 39.8 (16.0-40.0) % [place] % (Auto) 8.1 (0.0-15.0) % Eos % (Auto) 8.3 H (0.0-7.0) % Baso % (Auto) 1.3 (0.0-1.5) % Neut # (Auto) 3.2 (1.4-5.7) K/uL Lymph # (Auto) 3.0 H (0.6-2.4) K/uL [place] # (Auto) 0.6 (0.0-0.8) K/uL Eos # (Auto) 0.6 (0.0-0.7) K/uL Baso # (Auto) 0.1 (0.0-0.1) K/uL Nucleated RBC % 0.0 /100WBC Nucleated RBCs # 0 K/uL Sodium 139 (136-148) mmol/L Potassium 4.3 (3.5-5.1) mmol/L Chloride 105 (98-107) mmol/L Carbon Dioxide 26.0 (21.0-32.0) mmol/L BUN 8 (7.0-18.0) mg/dL Creatinine 0.8 (0.8-1.3) mg/dL Est Cr Clr Drug Dosing 150.89 mL/min Estimated GFR (MDRD) > 60.0 ml/min Glucose 92 (74-106) mg/dL Calcium 8.5 (8.5-10.1) mg/dL Total Bilirubin 0.5 (0.2-1.0) mg/dL AST 49 H (15-37) IU/L ALT 170 H (14-63) IU/L Alkaline Phosphatase 90 (46-116) U/L Total Protein 5.9 L (6.4-8.2) g/dL Albumin 3.2 L (3.4-5.0) g/dL Globulin 2.7 (2.6-4.0) g/dL Albumin/Globulin Ratio 1.2 (0.9-1.6) Lipase (73-393) U/L Urine Color Urine Appearance Urine pH (5.0-8.0) Ur Specific [place] (1.001-1.035) Urine Protein (NEGATIVE) mg/dL Urine Glucose (UA) (NEGATIVE) mg/dL Urine Ketones (NEGATIVE) mg/dL Urine Occult Blood (NEGATIVE) Urine Nitrite (NEGATIVE) Urine Bilirubin (NEGATIVE) Urine Urobilinogen (<2.0) EU/dL Ur Leukocyte Esterase (NEGATIVE) Med Orders - Current: Current Medications Pantoprazole Sodium 40 mg/ (Sodium Chloride) 10 mls @ 300 mls/hr IV BID [facility] Last Admin: 06/27/19 08:36 Dose: 300 mls/hr Lisinopril (Prinivil) 40 mg PO DAILY [facility] Last Admin: 06/27/19 08:35 Dose: 40 mg Lorazepam (Ativan) 0 mg PO Q4H PRN; Protocol PRN Reason: ciwa assessment Olanzapine (Zyprexa) 10 mg PO DAILY [facility] Last Admin: 06/27/19 09:38 Dose: 10 mg Ondansetron HCl (Zofran) 4 mg IVPUSH Q4H PRN PRN Reason: Nausea Sucralfate (Carafate) 1 gm PO Q6H [facility] Last Admin: 06/27/19 08:36 Dose: 1 gm Discontinued Medications Sodium Chloride (Normal Saline) 1,000 mls @ 999 mls/hr IV BOLUS ONE Stop: 06/26/19 13:42 Last Admin: 06/26/19 13:03 Dose: 999 mls/hr Pantoprazole Sodium 80 mg/ (Sodium Chloride) 20 mls @ 420 mls/hr IVPUSH ONETIME ONE Stop: 06/26/19 12:44 Last Admin: 06/26/19 13:05 Dose: 420 mls/hr Lactated Ringer's (Ringers, Lactated) 1,000 mls @ 999 mls/hr IV .BOLUS ONE Stop: 06/26/19 16:19 Last Admin: 06/26/19 15:49 Dose: 999 mls/hr Lactated Ringer's (Ringers, Lactated) 1,000 mls @ 125 mls/hr IV ASDIRECTED [facility] Last Admin: 06/26/19 17:32 Dose: 125 mls/hr Iopamidol (Isovue-370 (76%)) 100 ml IVPUSH ONETIME STA Stop: 06/26/19 14:20 Last Admin: 06/26/19 14:20 Dose: 100 ml Olanzapine (Zyprexa Zydis) 10 mg PO DAILY [facility] Last Admin: 06/27/19 09:34 Dose: Not Given Olanzapine (Zyprexa) Confirm Administered Dose 10 mg .ROUTE .STK-MED ONE Stop: 06/26/19 17:27 Last Admin: 06/26/19 17:30 Dose: 10 mg Ondansetron HCl (Zofran) 4 mg IVPUSH ONETIME ONE Stop: 06/26/19 12:43 Last Admin: 06/26/19 13:04 Dose: 4 mg - Exam Quality Assessment: No: Supplemental Oxygen General: Alert, Oriented Neck: Supple Lungs: Clear to Auscultation, Normal Respiratory Effort Cardiovascular: Regular Rate, Regular Rhythm GI/Abdominal Exam: Normal Bowel Sounds, Soft, Non-Tender, No Distention Peripheral Pulses: 3+: Radial (L), Radial (R) Skin: Warm, Dry Sepsis Event Note - Evaluation Sepsis Screening Result: No Definite Risk - Focused Exam Vital Signs: Vital Signs Temp Pulse Resp BP BP Pulse Ox 06/27/19 08:35 118/72 06/27/19 04:33 36.7 C 97 16 107/63 94 L 06/26/19 23:30 36.7 C 86 16 112/53 L 94 L Date Exam was Performed: 06/27/19 Time Exam was Performed: 11:28 - Problem List & Annotations (1) Hematemesis with nausea SNOMED Code(s): 3874469, 99926225 Code(s): K92.0 - HEMATEMESIS Status: Acute Current Visit: Yes (2) Alcohol abuse SNOMED Code(s): 23878269 Code(s): F10.10 - ALCOHOL ABUSE, UNCOMPLICATED Status: Acute Priority: Medium Current Visit: Yes (3) GERD (gastroesophageal reflux disease) SNOMED Code(s): 357822756 Code(s): K21.9 - GASTRO-ESOPHAGEAL REFLUX DISEASE WITHOUT ESOPHAGITIS Status: Acute Current Visit: Yes Qualifiers: Esophagitis presence: esophagitis presence not specified Qualified Code(s) : K21.9 - Gastro-esophageal reflux disease without esophagitis (4) Transaminitis SNOMED Code(s): 539926812, 124372777 Code(s): R74.0 - NONSPEC ELEV OF LEVELS OF TRANSAMNS & LACTIC ACID DEHYDRGNSE Status: Acute Priority: Medium Current Visit: Yes - Problem List Review Problem List Initiated/Reviewed/Updated: Yes - Plan Plan:: 29-year-old male with history of alcohol abuse admitted for management of hematemesis, could be secondary to retching versus alcoholic gastritis No further episodes of hematemesis Continue IV PPI twice daily She has been started on GI soft diet and will be n.p.o. overnight for possible endoscopy tomorrow Hemoglobin has been stable so far continue to monitor vitals closely Monitor and replete electrolytes as needed Patient has been counseled against alcohol abuse in detail
[2019-06-28] MEDS: Sucralfate Suspension 1 GM/10 ML Cup PO SCH ×2 (03:53→10:18)
[2019-06-28 06:38] LABS: BLOOD UREA NITROGEN,BUN 14 mg/dL (7.0-18.0); CARBON DIOXIDE,CO2 26.8 mmol/L (21.0-32.0); CHLORIDE,CL 105 mmol/L (98-107); GLUCOSE RANDOM 106 mg/dL (74-106); POTASSIUM,K 4.3 mmol/L (3.5-5.1); SODIUM,NA 140 mmol/L (136-148)
[2019-06-28] MEDS ORDERED: Midazolam 1 MG/ML 2 ML SDV ONE (08:43)
[2019-06-28] MEDS ORDERED: Propofol 200 MG/20 ML SDV ONE ×2 (08:43→12:03)
[2019-06-28] MEDS: OLANZapine 5 MG Tab PO SCH (09:15)
[2019-06-28] MEDS: Pantoprazole 40 MG in Sodium Chloride 0.9% 10 ML IV SCH (09:24)
[2019-06-28] MEDS: Lisinopril 10 MG Tab PO SCH (10:10)
--- NOTE | 2019-06-28 10:56 | PCM.PREANE ---
Preanesthetic Assessment - Anesthesia/Transfusion/Family Hx Anesthesia History: Prior Anesthesia Without Reaction Family History of Anesthesia Reaction: No Transfusion History: No Prior Transfusion(s) Intubation History: Unknown - Review of Systems General: No Symptoms Pulmonary: No Symptoms Cardiovascular: No Symptoms Gastrointestinal: Abdominal Pain Neurological: No Symptoms Other: Reports: None - Physical Assessment Vital Signs: Last Vital Signs Temp 35.9 C 06/28/19 07:00 Pulse 80 06/28/19 07:00 Resp 16 06/28/19 07:00 BP 133/65 06/28/19 07:00 Pulse Ox 95 06/28/19 07:00 Height: 6 ft Weight: 104.326 kg ASA Class: 2 Mental Status: Alert & Oriented x3 Airway Class: Mallampati = 2 Dentition: Reports: Normal Dentition Thyro-Mental Finger Breadths: 3 Mouth Opening Finger Breadths: 3 ROM/Head Extension: Full Lungs: Clear to Auscultation, Normal Respiratory Effort Cardiovascular: Regular Rate, Regular Rhythm - Lab Values: Laboratory Last Values WBC 7.51 K/uL (4.0-11.0) 06/28/19 05:50 RBC 4.52 M/uL (4.50-5.90) 06/28/19 05:50 Hgb 14.2 g/dL (13.0-17.0) 06/28/19 05:50 Hct 40.7 % (38.0-50.0) 06/28/19 05:50 MCV 90.0 fL (80.0-98.0) 06/28/19 05:50 MCH 31.4 pg (27.0-32.0) 06/28/19 05:50 MCHC 34.9 g/dL (31.0-37.0) 06/28/19 05:50 RDW Std Deviation 39.7 fl (28.0-62.0) 06/28/19 05:50 RDW Coeff of Jazlyn 12 % (11.0-15.0) 06/28/19 05:50 Plt Count 241 K/uL (150-400) 06/28/19 05:50 MPV 10.00 fL (7.40-12.00) 06/28/19 05:50 Neut % (Auto) 44.3 % (48.0-80.0) L 06/28/19 05:50 Lymph % (Auto) 39.3 % (16.0-40.0) 06/28/19 05:50 [place] % (Auto) 7.2 % (0.0-15.0) 06/28/19 05:50 Eos % (Auto) 8.1 % (0.0-7.0) H 06/28/19 05:50 Baso % (Auto) 1.1 % (0.0-1.5) 06/28/19 05:50 Neut # (Auto) 3.3 K/uL (1.4-5.7) 06/28/19 05:50 Lymph # (Auto) 3.0 K/uL (0.6-2.4) H 06/28/19 05:50 [place] # (Auto) 0.5 K/uL (0.0-0.8) 06/28/19 05:50 Eos # (Auto) 0.6 K/uL (0.0-0.7) 06/28/19 05:50 Baso # (Auto) 0.1 K/uL (0.0-0.1) 06/28/19 05:50 Nucleated RBC % 0.0 /100WBC 06/28/19 05:50 Nucleated RBCs # 0 K/uL 06/28/19 05:50 Sodium 140 mmol/L (136-148) 06/28/19 05:50 Potassium 4.3 mmol/L (3.5-5.1) 06/28/19 05:50 Chloride 105 mmol/L (98-107) 06/28/19 05:50 Carbon Dioxide 26.8 mmol/L (21.0-32.0) 06/28/19 05:50 BUN 14 mg/dL (7.0-18.0) 06/28/19 05:50 Creatinine 0.9 mg/dL (0.8-1.3) 06/28/19 05:50 Est Cr Clr Drug Dosing 134.12 mL/min 06/28/19 05:50 Estimated GFR (MDRD) > 60.0 ml/min 06/28/19 05:50 Glucose 106 mg/dL (74-106) 06/28/19 05:50 Calcium 8.6 mg/dL (8.5-10.1) 06/28/19 05:50 Total Bilirubin 0.3 mg/dL (0.2-1.0) 06/28/19 05:50 AST 59 IU/L (15-37) H 06/28/19 05:50 ALT 194 IU/L (14-63) H 06/28/19 05:50 Alkaline Phosphatase 95 U/L (46-116) 06/28/19 05:50 Total Protein 6.7 g/dL (6.4-8.2) 06/28/19 05:50 Albumin 3.4 g/dL (3.4-5.0) 06/28/19 05:50 Globulin 3.3 g/dL (2.6-4.0) 06/28/19 05:50 Albumin/Globulin Ratio 1.0 (0.9-1.6) 06/28/19 05:50 Lipase 99 U/L (73-393) 06/26/19 13:00 Urine Color YELLOW 06/26/19 12:50 Urine Appearance CLEAR 06/26/19 12:50 Urine pH 6.0 (5.0-8.0) 06/26/19 12:50 Ur Specific [place] 1.020 (1.001-1.035) 06/26/19 12:50 Urine Protein NEGATIVE mg/dL (NEGATIVE) 06/26/19 12:50 Urine Glucose (UA) NEGATIVE mg/dL (NEGATIVE) 06/26/19 12:50 Urine Ketones NEGATIVE mg/dL (NEGATIVE) 06/26/19 12:50 Urine Occult Blood NEGATIVE (NEGATIVE) 06/26/19 12:50 Urine Nitrite NEGATIVE (NEGATIVE) 06/26/19 12:50 Urine Bilirubin NEGATIVE (NEGATIVE) 06/26/19 12:50 Urine Urobilinogen 0.2 EU/dL (<2.0) 06/26/19 12:50 Ur Leukocyte Esterase NEGATIVE (NEGATIVE) 06/26/19 12:50 - Allergies Allergies/Adverse Reactions: Allergies Allergy/AdvReac Type Severity Reaction Status Date / Time divalproex sodium Allergy Irritabilit Verified 06/26/19 16:11 [From Depakote] y risperidone [From Risperdal] Allergy Irritabilit Verified 06/26/19 16:11 y - Blood Blood Available: No - Anesthesia Plan Pre-Op Medication Ordered: None - Acknowledgements Anesthesia Type Planned: MAC Pt an Appropriate Candidate for the Planned Anesthesia: Yes Alternatives and Risks of Anesthesia Discussed w Pt/Guardian: Yes Pt/Guardian Understands and Agrees with Anesthesia Plan: Yes PreAnesthesia Questionnaire HEENT History: Reports: None Cardiovascular History: Reports: Hypertension Respiratory History: Reports: None Gastrointestinal History: Reports: Gastritis, GERD, Hemorrhoids Genitourinary History: Reports: None Musculoskeletal History: Reports: Fracture Other Musculoskeletal History: Left hip. Acetabular fracture. Neurological History: Reports: None Psychiatric History: Reports: Bipolar Other Psychiatric History: Bipolar 1 Endocrine/Metabolic History: Reports: Obesity/BMI 30+ (BMI 31.2) Hematologic History: Reports: None Immunologic History: Reports: None Oncologic (Cancer) History: Reports: None Dermatologic History: Reports: Eczema - Infectious Disease History Infectious Disease History: Reports: Chicken Pox - Past Surgical History Head Surgeries/Procedures: Reports: None HEENT Surgical History: Reports: Oral Surgery Cardiovascular Surgical History: Reports: None Respiratory Surgical History: Reports: None GI Surgical History: Reports: None Male Surgical History: Reports: None Endocrine Surgical History: Reports: None Neurological Surgical History: Reports: None Musculoskeletal Surgical History: Reports: Other (See Below) Other Musculoskeletal Surgeries/Procedures:: Hardware in left hip Dermatological Surgical History: Reports: None - SUBSTANCE USE Smoking Status *Q: Current Every Day Smoker (E- cigarettes) Tobacco Use Within Last Twelve Months: Cigarettes Second Hand Smoke Exposure: Yes Days Per Week of Alcohol Use: 4 Number of Drinks Per Day: 4 Total Drinks Per Week: 16 Recreational Drug Use History: No - HOME MEDS Home Medications: Home Meds Lisinopril 40 mg PO DAILY 06/26/19 [History] OLANZapine [Olanzapine Odt] 10 mg PO DAILY 06/26/19 [History] - CURRENT (IN HOUSE) MEDS Current Meds: Current Medications Pantoprazole Sodium 40 mg/ (Sodium Chloride) 10 mls @ 300 mls/hr IV BID [facility] Last Admin: 06/28/19 09:24 Dose: 300 mls/hr Lisinopril (Prinivil) 40 mg PO DAILY [facility] Last Admin: 06/28/19 10:10 Dose: Not Given Lorazepam (Ativan) 0 mg PO Q4H PRN; Protocol PRN Reason: ciwa assessment Olanzapine (Zyprexa) 10 mg PO DAILY [facility] Last Admin: 06/28/19 09:15 Dose: Not Given Ondansetron HCl (Zofran) 4 mg IVPUSH Q4H PRN PRN Reason: Nausea Sucralfate (Carafate) 1 gm PO Q6H [facility] Last Admin: 06/28/19 10:18 Dose: Not Given Discontinued Medications Sodium Chloride (Normal Saline) 1,000 mls @ 999 mls/hr IV BOLUS ONE Stop: 06/26/19 13:42 Last Admin: 06/26/19 13:03 Dose: 999 mls/hr Pantoprazole Sodium 80 mg/ (Sodium Chloride) 20 mls @ 420 mls/hr IVPUSH ONETIME ONE Stop: 06/26/19 12:44 Last Admin: 06/26/19 13:05 Dose: 420 mls/hr Lactated Ringer's (Ringers, Lactated) 1,000 mls @ 999 mls/hr IV .BOLUS ONE Stop: 06/26/19 16:19 Last Admin: 06/26/19 15:49 Dose: 999 mls/hr Lactated Ringer's (Ringers, Lactated) 1,000 mls @ 125 mls/hr IV ASDIRECTED [facility] Last Admin: 06/26/19 17:32 Dose: 125 mls/hr Iopamidol (Isovue-370 (76%)) 100 ml IVPUSH ONETIME STA Stop: 06/26/19 14:20 Last Admin: 06/26/19 14:20 Dose: 100 ml Midazolam HCl (Versed 1 Mg/Ml) Confirm Administered Dose 2 mg .ROUTE .STK-MED ONE Stop: 06/28/19 08:44 Olanzapine (Zyprexa Zydis) 10 mg PO DAILY [facility] Last Admin: 06/27/19 09:34 Dose: Not Given Olanzapine (Zyprexa) Confirm Administered Dose 10 mg .ROUTE .STK-MED ONE Stop: 06/26/19 17:27 Last Admin: 06/26/19 17:30 Dose: 10 mg Ondansetron HCl (Zofran) 4 mg IVPUSH ONETIME ONE Stop: 06/26/19 12:43 Last Admin: 06/26/19 13:04 Dose: 4 mg Propofol (Diprivan 20 Ml) Confirm Administered Dose 200 mg .ROUTE .STK-MED ONE Stop: 06/28/19 08:44
[2019-06-28] MEDS ORDERED: Lactated Ringers 1,000 ML IV SCH (12:15)
--- NOTE | 2019-06-28 12:15 | PCM.OPNOTE ---
- General Post-Op/Procedure Note Date of Surgery/Procedure: 06/28/19 Operative Procedure(s): Esophagogastroduodenoscopy with biopsy Pre Op Diagnosis: Hematemesis Post-Op Diagnosis: Mild chronic gastritis Anesthesia Technique: MAC (ASA II) Primary Surgeon: Ameya Fonseca Condition: Stable Free Text/Narrative:: Intake & Output 06/28/19 06/28/19 06/28/19 03:59 11:59 19:59 Intake Total 800 Output Total 1200 Balance -400 DICTATION 822568 CPT CODE 35612
--- NOTE | 2019-06-28 13:17 | PCM.POSTAN ---
POST ANESTHESIA ASSESSMENT - MENTAL STATUS Mental Status: Alert, Oriented - VITAL SIGNS Vital Signs: Last Vital Signs Temp 35.8 C 06/28/19 12:30 Pulse 88 06/28/19 12:30 Resp 16 06/28/19 12:30 BP 114/67 06/28/19 12:30 Pulse Ox 97 06/28/19 12:30 - RESPIRATORY Respiratory Status: Respiratory Rate WNL, Airway Patent, O2 Saturation Stable - CARDIOVASCULAR CV Status: Pulse Rate WNL, Blood Pressure Stable - GASTROINTESTINAL GI Status: No Symptoms - PAIN Pain Score: 0 - POST OP HYDRATION Hydration Status: Adequate & Stable - OBSERVATIONS Free Text/Narrative:: No anesthesia problems
--- NOTE | 2019-06-28 13:18 | PCM48HPAN ---
Post Anesthesia Note - EVALUATION WITHIN 48HRS OF ANESTHETIC Vital Signs in Normal Range: Yes Patient Participated in Evaluation: Yes Respiratory Function Stable: Yes Airway Patent: Yes Cardiovascular Function Stable: Yes Hydration Status Stable: Yes Pain Control Satisfactory: Yes Nausea and Vomiting Control Satisfactory: Yes Mental Status Recovered: Yes Vital Signs: Last Vital Signs Temp 35.8 C 06/28/19 12:30 Pulse 88 06/28/19 12:30 Resp 16 06/28/19 12:30 BP 114/67 06/28/19 12:30 Pulse Ox 97 06/28/19 12:30 - COMMENTS/OBSERVATIONS Free Text/Narrative:: no anesthesia problems
--- NOTE | 2019-06-28 14:18 | PCM.DCSUM1 ---
<Ayla Reaves - Last Filed: 06/28/19 14:06> Discharge Summary - Hospital Course Free Text/Narrative:: Discharge summary Admission date 06/26/2019 Discharge date 06/28/2019 Admission diagnoses: Hematemesis x 2 secondary to alcohol abuse Discharge diagnoses: Hematemesis secondary to gastritis Consultations: Dr. Ameya Fonseca of surgery Procedures EGD Hospital course: 21-year-old male with significant past medical history of GERD , hypertension BiPolar disorder; sending with 2 episodes of bloody vomitus secondary to alcohol use patient endorses a long convoluted history of alcohol abuse especially in the past year. Patient was initiated on intravenous PPI and made n.p.o.; Dr. Ameya Fonseca of surgery was consulted; EGD performed in a.m. showed acute gastritis with no acute lacerations or active bleeding. Patient was discharged home on oral PPI and advised to follow-up with surgery. Follow-up appointment has been made. Patient advised to discontinue alcohol use and continue home medications. Discharge condition; stable Disposition: Home Medications: See attached med list Discharge instructions: Advised to avoid NSAIDs and alcohol use. Patient advised to follow-up with surgery at appointed date - Discharge Data Discharge Date: 06/28/19 Discharge Disposition: Home, Self-Care 01 Condition: Good - Referral to Home Health Primary Care Physician: PCP None - Patient Summary/Data Operative Procedure(s) Performed: Esophagogastroduodenoscopy with biopsy Consults: Consultations 06/26/19 15:31 Consult to Physician [CONS] Stat - Patient Instructions Diet: Heart Healthy Diet, No Alcoholic Beverages Activity: As Tolerated Driving: May Drive Today Showering/Bathing: May Shower Notify Provider of: Fever, Increased Pain, Swelling and Redness, Drainage, Nausea and/or Vomiting Other/Special Instructions: Please discontinue use of alcohol and follow up with your PCP - Discharge Plan *PRESCRIPTION DRUG MONITORING PROGRAM REVIEWED*: No *COPY OF PRESCRIPTION DRUG MONITORING REPORT IN PATIENT MICAH: No Prescriptions/Med Rec: Pantoprazole [ProTONIX] 40 mg PO DAILY 30 Days #30 tab.cr Home Medications: Home Meds Lisinopril 40 mg PO DAILY 06/26/19 [History] OLANZapine [Olanzapine Odt] 10 mg PO DAILY 06/26/19 [History] Pantoprazole [ProTONIX] 40 mg PO DAILY 30 Days #30 tab.cr 06/28/19 [Rx] Oxygen Therapy Mode: Room Air Patient Handouts: Hematemesis, Alcohol Use Disorder, Pantoprazole tablets, Esophagogastroduodenoscopy, Care After Referrals: Ameya Fonseca MD [Physician] - 07/08/19 9:30 am - Discharge Summary/Plan Comment DC Time >30 min.: No - Patient Data Vitals - Most Recent: Last Vital Signs Temp 96.5 F 06/28/19 12:30 Pulse 88 06/28/19 12:30 Resp 16 06/28/19 12:30 BP 114/67 06/28/19 12:30 Pulse Ox 97 06/28/19 12:30 Weight - Most Recent: 104.326 kg I&O - Last 24 hours: Intake & Output 06/27/19 06/28/19 06/28/19 22:59 06:59 14:59 Intake Total 900 800 300 Output Total 680 1200 Balance 220 -400 300 Lab Results - Last 24 hrs: Laboratory Results - last 24 hr 06/28/19 06/28/19 Range/Units 05:50 05:50 WBC 7.51 (4.0-11.0) K/uL RBC 4.52 (4.50-5.90) M/uL Hgb 14.2 (13.0-17.0) g/dL Hct 40.7 (38.0-50.0) % MCV 90.0 (80.0-98.0) fL MCH 31.4 (27.0-32.0) pg MCHC 34.9 (31.0-37.0) g/dL RDW Std Deviation 39.7 (28.0-62.0) fl RDW Coeff of Jazlyn 12 (11.0-15.0) % Plt Count 241 (150-400) K/uL MPV 10.00 (7.40-12.00) fL Neut % (Auto) 44.3 L (48.0-80.0) % Lymph % (Auto) 39.3 (16.0-40.0) % [place] % (Auto) 7.2 (0.0-15.0) % Eos % (Auto) 8.1 H (0.0-7.0) % Baso % (Auto) 1.1 (0.0-1.5) % Neut # (Auto) 3.3 (1.4-5.7) K/uL Lymph # (Auto) 3.0 H (0.6-2.4) K/uL [place] # (Auto) 0.5 (0.0-0.8) K/uL Eos # (Auto) 0.6 (0.0-0.7) K/uL Baso # (Auto) 0.1 (0.0-0.1) K/uL Nucleated RBC % 0.0 /100WBC Nucleated RBCs # 0 K/uL Sodium 140 (136-148) mmol/L Potassium 4.3 (3.5-5.1) mmol/L Chloride 105 (98-107) mmol/L Carbon Dioxide 26.8 (21.0-32.0) mmol/L BUN 14 (7.0-18.0) mg/dL Creatinine 0.9 (0.8-1.3) mg/dL Est Cr Clr Drug Dosing 134.12 mL/min Estimated GFR (MDRD) > 60.0 ml/min Glucose 106 (74-106) mg/dL Calcium 8.6 (8.5-10.1) mg/dL Total Bilirubin 0.3 (0.2-1.0) mg/dL AST 59 H (15-37) IU/L ALT 194 H (14-63) IU/L Alkaline Phosphatase 95 (46-116) U/L Total Protein 6.7 (6.4-8.2) g/dL Albumin 3.4 (3.4-5.0) g/dL Globulin 3.3 (2.6-4.0) g/dL Albumin/Globulin Ratio 1.0 (0.9-1.6) Med Orders - Current: Current Medications Pantoprazole Sodium 40 mg/ (Sodium Chloride) 10 mls @ 300 mls/hr IV BID [facility] Last Admin: 06/28/19 09:24 Dose: 300 mls/hr Lactated Ringer's (Ringers, Lactated) 1,000 mls @ 125 mls/hr IV ASDIRECTED [facility] Lisinopril (Prinivil) 40 mg PO DAILY [facility] Last Admin: 06/28/19 10:10 Dose: Not Given Lorazepam (Ativan) 0 mg PO Q4H PRN; Protocol PRN Reason: ciwa assessment Olanzapine (Zyprexa) 10 mg PO DAILY [facility] Last Admin: 06/28/19 09:15 Dose: Not Given Ondansetron HCl (Zofran) 4 mg IVPUSH Q4H PRN PRN Reason: Nausea Sucralfate (Carafate) 1 gm PO Q6H [facility] Last Admin: 06/28/19 10:18 Dose: Not Given Discontinued Medications Sodium Chloride (Normal Saline) 1,000 mls @ 999 mls/hr IV BOLUS ONE Stop: 06/26/19 13:42 Last Admin: 06/26/19 13:03 Dose: 999 mls/hr Pantoprazole Sodium 80 mg/ (Sodium Chloride) 20 mls @ 420 mls/hr IVPUSH ONETIME ONE Stop: 06/26/19 12:44 Last Admin: 06/26/19 13:05 Dose: 420 mls/hr Lactated Ringer's (Ringers, Lactated) 1,000 mls @ 999 mls/hr IV .BOLUS ONE Stop: 06/26/19 16:19 Last Admin: 06/26/19 15:49 Dose: 999 mls/hr Lactated Ringer's (Ringers, Lactated) 1,000 mls @ 125 mls/hr IV ASDIRECTED [facility] Last Admin: 06/26/19 17:32 Dose: 125 mls/hr Iopamidol (Isovue-370 (76%)) 100 ml IVPUSH ONETIME STA Stop: 06/26/19 14:20 Last Admin: 06/26/19 14:20 Dose: 100 ml Midazolam HCl (Versed 1 Mg/Ml) Confirm Administered Dose 2 mg .ROUTE .STK-MED ONE Stop: 06/28/19 08:44 Olanzapine (Zyprexa Zydis) 10 mg PO DAILY [facility] Last Admin: 06/27/19 09:34 Dose: Not Given Olanzapine (Zyprexa) Confirm Administered Dose 10 mg .ROUTE .STK-MED ONE Stop: 06/26/19 17:27 Last Admin: 06/26/19 17:30 Dose: 10 mg Ondansetron HCl (Zofran) 4 mg IVPUSH ONETIME ONE Stop: 06/26/19 12:43 Last Admin: 06/26/19 13:04 Dose: 4 mg Propofol (Diprivan 20 Ml) Confirm Administered Dose 200 mg .ROUTE .STK-MED ONE Stop: 06/28/19 08:44 Propofol (Diprivan 20 Ml) Confirm Administered Dose 200 mg .ROUTE .STK-MED ONE Stop: 06/28/19 12:04 <Geraldine Moon - Last Filed: 06/28/19 19:37> Discharge Summary - Hospital Course HPI Initial Comments: I have seen and evaluated the patient and agree with the residents note unless specified in my note - Referral to Home Health Primary Care Physician: PCP None - Discharge Diagnosis/Problem(s) (1) Hematemesis with nausea SNOMED Code(s): 0171492, 19769657 ICD Code: K92.0 - HEMATEMESIS Status: Acute (2) Alcohol abuse SNOMED Code(s): 21967805 ICD Code: F10.10 - ALCOHOL ABUSE, UNCOMPLICATED Status: Acute Priority: Medium (3) GERD (gastroesophageal reflux disease) SNOMED Code(s): 154888583 ICD Code: K21.9 - GASTRO-ESOPHAGEAL REFLUX DISEASE WITHOUT ESOPHAGITIS Status: Acute Qualifiers: Esophagitis presence: esophagitis presence not specified Qualified Code(s) : K21.9 - Gastro-esophageal reflux disease without esophagitis (4) Transaminitis SNOMED Code(s): 161953898, 037426648 ICD Code: R74.0 - NONSPEC ELEV OF LEVELS OF TRANSAMNS & LACTIC ACID DEHYDRGNSE Status: Acute Priority: Medium - Patient Summary/Data Consults: Consultations 06/26/19 15:31 Consult to Physician [CONS] Stat - Patient Data Vitals - Most Recent: Last Vital Signs Temp 35.8 C 06/28/19 12:30 Pulse 90 06/28/19 14:00 Resp 17 06/28/19 14:00 BP 120/70 06/28/19 14:00 Pulse Ox 96 06/28/19 14:00 I&O - Last 24 hours: Intake & Output 06/28/19 06/28/19 06/28/19 06:59 14:59 22:59 Intake Total 800 1050 Output Total 1200 0 Balance -400 1050 Lab Results - Last 24 hrs: Laboratory Results - last 24 hr 06/28/19 06/28/19 Range/Units 05:50 05:50 WBC 7.51 (4.0-11.0) K/uL RBC 4.52 (4.50-5.90) M/uL Hgb 14.2 (13.0-17.0) g/dL Hct 40.7 (38.0-50.0) % MCV 90.0 (80.0-98.0) fL MCH 31.4 (27.0-32.0) pg MCHC 34.9 (31.0-37.0) g/dL RDW Std Deviation 39.7 (28.0-62.0) fl RDW Coeff of Jazlyn 12 (11.0-15.0) % Plt Count 241 (150-400) K/uL MPV 10.00 (7.40-12.00) fL Neut % (Auto) 44.3 L (48.0-80.0) % Lymph % (Auto) 39.3 (16.0-40.0) % [place] % (Auto) 7.2 (0.0-15.0) % Eos % (Auto) 8.1 H (0.0-7.0) % Baso % (Auto) 1.1 (0.0-1.5) % Neut # (Auto) 3.3 (1.4-5.7) K/uL Lymph # (Auto) 3.0 H (0.6-2.4) K/uL [place] # (Auto) 0.5 (0.0-0.8) K/uL Eos # (Auto) 0.6 (0.0-0.7) K/uL Baso # (Auto) 0.1 (0.0-0.1) K/uL Nucleated RBC % 0.0 /100WBC Nucleated RBCs # 0 K/uL Sodium 140 (136-148) mmol/L Potassium 4.3 (3.5-5.1) mmol/L Chloride 105 (98-107) mmol/L Carbon Dioxide 26.8 (21.0-32.0) mmol/L BUN 14 (7.0-18.0) mg/dL Creatinine 0.9 (0.8-1.3) mg/dL Est Cr Clr Drug Dosing 134.12 mL/min Estimated GFR (MDRD) > 60.0 ml/min Glucose 106 (74-106) mg/dL Calcium 8.6 (8.5-10.1) mg/dL Total Bilirubin 0.3 (0.2-1.0) mg/dL AST 59 H (15-37) IU/L ALT 194 H (14-63) IU/L Alkaline Phosphatase 95 (46-116) U/L Total Protein 6.7 (6.4-8.2) g/dL Albumin 3.4 (3.4-5.0) g/dL Globulin 3.3 (2.6-4.0) g/dL Albumin/Globulin Ratio 1.0 (0.9-1.6) Med Orders - Current: Current Medications Discontinued Medications Sodium Chloride (Normal Saline) 1,000 mls @ 999 mls/hr IV BOLUS ONE Stop: 06/26/19 13:42 Last Admin: 06/26/19 13:03 Dose: 999 mls/hr Pantoprazole Sodium 80 mg/ (Sodium Chloride) 20 mls @ 420 mls/hr IVPUSH ONETIME ONE Stop: 06/26/19 12:44 Last Admin: 06/26/19 13:05 Dose: 420 mls/hr Lactated Ringer's (Ringers, Lactated) 1,000 mls @ 999 mls/hr IV .BOLUS ONE Stop: 06/26/19 16:19 Last Admin: 06/26/19 15:49 Dose: 999 mls/hr Lactated Ringer's (Ringers, Lactated) 1,000 mls @ 125 mls/hr IV ASDIRECTED [facility] Last Admin: 06/26/19 17:32 Dose: 125 mls/hr Pantoprazole Sodium 40 mg/ (Sodium Chloride) 10 mls @ 300 mls/hr IV BID [facility] Last Admin: 06/28/19 09:24 Dose: 300 mls/hr Lactated Ringer's (Ringers, Lactated) 1,000 mls @ 125 mls/hr IV ASDIRECTED [facility] Iopamidol (Isovue-370 (76%)) 100 ml IVPUSH ONETIME STA Stop: 06/26/19 14:20 Last Admin: 06/26/19 14:20 Dose: 100 ml Lisinopril (Prinivil) 40 mg PO DAILY [facility] Last Admin: 06/28/19 10:10 Dose: Not Given Lorazepam (Ativan) 0 mg PO Q4H PRN; Protocol PRN Reason: ciwa assessment Midazolam HCl (Versed 1 Mg/Ml) Confirm Administered Dose 2 mg .ROUTE .STK-MED ONE Stop: 06/28/19 08:44 Olanzapine (Zyprexa Zydis) 10 mg PO DAILY [facility] Last Admin: 06/27/19 09:34 Dose: Not Given Olanzapine (Zyprexa) Confirm Administered Dose 10 mg .ROUTE .STK-MED ONE Stop: 06/26/19 17:27 Last Admin: 06/26/19 17:30 Dose: 10 mg Olanzapine (Zyprexa) 10 mg PO DAILY [facility] Last Admin: 06/28/19 09:15 Dose: Not Given Ondansetron HCl (Zofran) 4 mg IVPUSH ONETIME ONE Stop: 06/26/19 12:43 Last Admin: 06/26/19 13:04 Dose: 4 mg Ondansetron HCl (Zofran) 4 mg IVPUSH Q4H PRN PRN Reason: Nausea Propofol (Diprivan 20 Ml) Confirm Administered Dose 200 mg .ROUTE .STK-MED ONE Stop: 06/28/19 08:44 Propofol (Diprivan 20 Ml) Confirm Administered Dose 200 mg .ROUTE .STK-MED ONE Stop: 06/28/19 12:04 Sucralfate (Carafate) 1 gm PO Q6H [facility] Last Admin: 06/28/19 10:18 Dose: Not Given
--- NOTE | 2019-06-28 15:38 | OR ---
SURGEON: Ameya Fonseca M.D. DATE OF PROCEDURE: 06/28/2019 OPERATION PERFORMED: Esophagogastroduodenoscopy with gastric biopsy. ANESTHESIA: MAC. ASA CLASSIFICATION: 2. PREOPERATIVE DIAGNOSIS: Hematemesis. POSTOPERATIVE DIAGNOSIS: Mild chronic gastritis. DESCRIPTION OF PROCEDURE: The patient was taken to the endoscopy room, positioned on the endoscopy table in the supine position. Time-out was called for appropriate identification of the patient and procedure. Monitored anesthesia care was provided. The bite- block was placed between the patient's teeth. The gastroscope was inserted through the bite-block, into the oropharynx, and advanced without difficulty through the esophagus and stomach into the duodenum, where examination was carried out in a retrograde fashion. No blood was seen in the upper GI tract. The scope was withdrawn to the stomach, which does show a [id number]-ozoiholt gastritis. Antral biopsies were obtained to look for the presence of Helicobacter pylori. There was no evidence of an ulceration. The gastroscope was retroflexed to visualize the proximal stomach. Again, no ulcerations were noted. The gastroscope was then straightened out, and after biopsies had been taken, the gastroscope was slowly withdrawn, carefully visualizing the greater and lesser curvatures. No tumors or polyps were seen, and there were no ulcerations. The GE junction is well defined, and I did not see any evidence of a Maeve-Yoon tear. There was no evidence of esophagitis or any esophageal varices identified. The gastroscope was slowly withdrawn through the esophagus, which demonstrated good contractility. No mid or proximal lesions were identified. The vocal cords were briefly visualized as the scope was withdrawn and noted to move symmetrically. The gastroscope was then removed with the patient having tolerated the procedure well. He was taken to recovery room in stable condition. CHRIS / RENETTA /[id number]
== END 2019-06-28 14:28 | disposition home or self-care (01) ==
LOC: MW.ED 12:16 → MW.MS 15:39
PROVIDERS: ADMIT Student in an Organized Health Care Education/Training Program; ATTEND Student in an Organized Health Care Education/Training Program
DX: K29.51 Unspecified chronic gastritis with bleeding (principal); K21.9 Gastro-esophageal reflux disease without esophagitis; R74.0 Nonspecific elevation of levels of transaminase and lactic acid dehydrogenase [LDH]; F31.9 Bipolar disorder, unspecified; I10 Essential (primary) hypertension; F10.10 Alcohol abuse, uncomplicated; Z88.8 Allergy status to other drugs, medicaments and biological substances
CPT/HCPCS: 36415; 43239; 74177; 80053; 81003; 83690; 85018; 85025; 93005; 96361; 96374; 99285; A9270; C9113; J2250; J2405; J2704; J7030; J7050; J7120; Q9967; 00731; 88305; 88312; 99284